=== PATIENT | female | born 1955 | race Caucasian/White ===

== ENCOUNTER 2019-07-20 23:28 | Emergency (ER) | payer BC ==
[2019-07-20] MEDS ORDERED: Mag-Al Plus 1200 MG/1200 MG/120 MG/30 ML UDCUP ONE (23:52)
[2019-07-20] MEDS ORDERED: Lidocaine Viscous Sol 2% 15 ml UD Cup ONE (23:52)
[2019-07-21] MEDS ORDERED: Famotidine In NaCl 20 mg/50 ml Premix Bag ONE (00:10)
[2019-07-21 00:11] LABS: #Basophils 0.1 thou/uL (0.0-0.2); #Eosinphils 0.1 thou/uL (0.0-0.7); #Lymphocytes 3.2 thou/uL (1.20-3.40); #Monocytes 0.6 thou/uL (0.11-0.59); #Neutrophils 4.7 thou/uL (1.40-6.50); %Basophils 1.3 % (0.0-1.0); %Eosinophils 1.4 % (0.0-10.0); %Lymphocytes 36.5 % (21.0-51.0); %Monocytes 6.4 % (0.0-10.0); %Neutrophils 54.3 % (42.0-75.0); Hemoglobin 13.1 g/dL (12.0-16.0); Mean Corpuscular HGB CONC 34.2 g/dL (32.0-36.0); Mean Corpuscular Hemoglobin 31.5 pg (27.0-31.0); Mean Corpuscular Volume 92.2 fL (78.0-98.0); Mean Platelet Volume 7.6 fL (7.4-10.4); Platelet Count 318 thou/uL (130-400); RBC Distribution Width 11.9 % (11.5-14.5); Red Blood Cell (RBC) Count 4.16 mill/uL (4.20-5.40); White Blood Cell (WBC) Count 8.7 thou/uL (4.8-10.8)
[2019-07-21 00:26] LABS: ALT (SGPT) 22 U/L (8-55); AST (SGOT) 19 U/L (5-34); Alkaline Phosphatase 70 U/L (40-110); Anion Gap 19 mmol/L (10-20); BUN (Urea Nitrogen) 22 mg/dL (9.8-20.1); Bilirubin, Total 0.4 mg/dL (0.2-1.2); Calc. Creatinine Clearance 0 mL/min (70-130); Calcium 9.5 mg/dL (7.8-10.44); Carbon Dioxide 26 mmol/L (23-31); Chloride 101 mmol/L (98-107); Estimated GFR-MDRD 71; Glucose 125 mg/dL (80-115); Lipase 34 U/L (8-78); Potassium 3.2 mmol/L (3.5-5.1); Sodium 143 mmol/L (136-145)
[2019-07-21] MEDS ORDERED: Potassium Chloride 20 MEQ TAB ONE (00:36)
[2019-07-21] MEDS ORDERED: Ondansetron ODT 4 MG TAB ONE (00:37)
[2019-07-21] MEDS ORDERED: Acetaminophen/Codeine 30-300mg Tablet ONE (00:37)
--- NOTE | 2019-07-21 06:46 | RAD ---
PORTABLE CHEST: Date: 07/21/2019 An AP portable film at 0008 hours shows a normal sized heart and clear lungs. No infiltrate or effusi on seen. There is no vascular congestion or edema. No free air or dilated bowel seen beneath the diap hragm. IMPRESSION: No acute findings. POS: HOME
== END 2019-07-21 00:53 | disposition home or self-care (01) ==
LOC: BURERS 23:28
DX: K80.20 Calculus of gallbladder without cholecystitis without obstruction (principal); E87.6 Hypokalemia; E78.5 Hyperlipidemia, unspecified; E78.00 Pure hypercholesterolemia, unspecified; I10 Essential (primary) hypertension
CPT/HCPCS: 36415; 71045; 80053; 83690; 84484; 85025; 93005; 96365; Q0162

== ENCOUNTER 2020-10-03 18:12 | Outpatient (CLI) | payer OTHER | END 2020-10-03 18:13 | disposition home or self-care (01) | LOC: BURRAD 18:12 | PROVIDERS: ATTEND Family Medicine | DX: M54.5 Low back pain (principal); M47.814 Spondylosis without myelopathy or radiculopathy, thoracic region | CPT/HCPCS: 72100 ==